=== PATIENT | male | born 1950 | race Caucasian/White ===

== ENCOUNTER 2023-08-29 15:05 | Outpatient (REF) | payer MEDICARE, MEDICAID, SELFPAY ==
[2023-08-29 16:48] LABS: Anion Gap 10 (12-20); Blood Urea Nitrogen 19 mg/dL (9-16); Calcium 9.8 mg/dL (8.4-10.2); Carbon Dioxide 31 mmol/L (22-29); Chloride 102 mmol/L (96-108); Estimated Glomerular Filt Rate > 60; Glucose Random 97 mg/dL (60-115); Potassium 4.2 mmol/L (3.3-5.1); Sodium 139 mmol/L (135-145)
[2023-08-29 16:54] LABS: Erythrocyte Sedimentation Rate 7 MM/HR (0-15)
[2023-08-29 17:03] LABS: T4 Thyroxine 6.7 ug/dL (4.5-12.0)
[2023-08-30 09:08] LABS: Lyme Abs Screen <0.90 index
[2023-09-02 14:44] LABS: Anti Nuclear Antibody Screen NEGATIVE (NEGATIVE)
== END 2023-08-29 15:06 | disposition home or self-care (01) ==
LOC: HO.LAB 15:05
PROVIDERS: Visit Provider Psychiatry & Neurology Neurology
DX: M79.7 Fibromyalgia (principal)
CPT/HCPCS: 36415; 80048; 82550; 84436; 84443; 85652; 86038; 86617; 86618